=== PATIENT | female | born 1955 | race Caucasian/White ===

== ENCOUNTER → 2022-05-18 11:39 | Outpatient (BNVA) | payer MEDICARE, BC, SELFPAY | PROVIDERS: Family Provider Family Medicine; PCP Family Medicine; Visit Provider Family Medicine | DX: I10 Essential (primary) hypertension (principal); Z13.220 Encounter for screening for lipoid disorders; Z51.81 Encounter for therapeutic drug level monitoring; Z12.11 Encounter for screening for malignant neoplasm of colon | CPT/HCPCS: 80053; 80061; 85025 ==

== ENCOUNTER 2022-06-01 10:18 | Outpatient (CLI) | payer MEDICARE, BC, SELFPAY ==
--- NOTE | 2022-06-01 10:26 | MM_ITS ---
WS: [id number] BILATERAL SCREENING DIGITAL TOMOSYNTHESIS MAMMOGRAM WITH CAD HISTORY: Screening mammogram COMPARISON: 05/19/2014 and 01/31/2012 Bilateral CC and MLO views with tomosynthesis and synthetic mammography submitted. Computer aided det ection analyzed. Breast composition: There are scattered areas of fibroglandular density. No suspicious masses, microc alcifications or architectural distortion. Stable asymmetry in the anterior LEFT breast. MM/[place] [id number] IMPRESSION: BI-RADS: 2-Benign FOLLOW UP: 1 Year Follow-up
== END 2022-06-01 10:19 | disposition home or self-care (01) ==
LOC: RAD 10:18
PROVIDERS: PCP Family Medicine; Visit Provider Family Medicine
DX: Z12.31 Encounter for screening mammogram for malignant neoplasm of breast (principal)
CPT/HCPCS: 77063; 77067

== ENCOUNTER → 2022-06-02 09:54 | Outpatient (BNVA) | payer MEDICARE, BC, SELFPAY | PROVIDERS: PCP Family Medicine; Visit Provider Surgery | DX: Z12.11 Encounter for screening for malignant neoplasm of colon (principal) | CPT/HCPCS: 99024 ==

== ENCOUNTER → 2022-06-27 15:31 | Outpatient (BNVA) | payer MEDICARE, BC, SELFPAY | PROVIDERS: PCP Family Medicine; Visit Provider Clinical Nurse Specialist Adult Health | DX: Z20.822 Contact with and (suspected) exposure to COVID-19 (principal); J06.9 Acute upper respiratory infection, unspecified; J02.8 Acute pharyngitis due to other specified organisms | CPT/HCPCS: 87426; 87880 ==

== ENCOUNTER 2022-08-15 05:33 | Day surgery (SDC) | payer MEDICARE, BC, SELFPAY ==
[2022-08-11 10:00] VITALS: BMI 32.0
[2022-08-15 06:17] VITALS: BP 161/72; PULSE 62; RESP 18; TEMP 36.4; O2SAT 97
[2022-08-15] MEDS: sodium chloride 0.9% 1,000 ML 30 ML IV (06:25)
--- NOTE | 2022-08-15 06:26 | W.PM.OPSFHP ---
Same Day Surgery H&P Indication for Procedure/HPI DATE OF PROCEDURE: August 15, 2022 CHIEF COMPLAINT/INDICATIONFOR SURGICAL PROCEDURE: Screening colonoscopy PREOP DIAGNOSIS: Screening colonoscopy PLANNED PROCEDURE: Operation Date: 08/15/22 07:00 Proposed Procedures p Colonoscopy 88097,Z12.11(Not Applicable) - Ronen Myers MD This is a pleasant 67 years old female patient referred to my practice for screening colonoscopy. Patient reports her father had history of colon cancer age of 45 and she started to screening colonoscopies at age of 36, also her sister had history of colon cancer in both her dad and her sister because of that. Per patient's description. Reports her mom had history of colon polyps. Last colonoscopy was done 10 years ago and was within normal limits. ROS All systems have been reviewed negative except as for the above or per problem list. Medications/Allergies* Home Medications Medication Instructions Recorded Confirmed Type dicyclomine 10 mg capsule 10 mg PO QID PRN Spasms 05/18/22 08/11/22 History meclizine 12.5 mg tablet 12.5 mg PO BID PRN Dizziness 05/18/22 08/11/22 History atenolol 25 mg tablet 25 mg PO BEDTIME 08/11/22 08/11/22 History Allergies/Adverse Reactions Allergy/AdvReac Type Severity Reaction Status Date / Time Egpxnjy-WBS-KdI Reductase Allergy Unknown Verified 08/15/22 06:26 Inhibitor betamethasone AdvReac Mild Unknown Verified 08/15/22 06:26 [From [employer]] Current Medications: Generic Name Dose Route Start Last Admin Trade Name Freq PRN Reason Stop Dose Admin Sodium Chloride 1,000 mls @ 30 mls/hr 08/15/22 06:15 08/15/22 06:25 Sodium Chloride 0.9% IV 08/16/22 06:14 30 mls/hr .Q24H FLORES Administration Pertinent History/Comorbid Conditions* Medical History (Updated 06/27/22 @ 09:33 by Ignacio Gaona NP) Anxiety Chronic diarrhea Hypertension Surgical History (Updated 06/27/22 @ 08:32 by Ignacio Gaona NP) Hx of cervical spine surgery Hx of cholecystectomy Hx of foot surgery Hx of sinus surgery Family History (Updated 06/27/22 @ 08:34 by Ignacio Gaona NP) CAD (coronary artery disease) Hyperlipidemia Mother Cancer Father colon cancer, at 44 years old Sister colon cancer, in her 50s Hypertension Father Mother Stroke Social History Smoking and tobacco status: never smoked Alcohol intake: never Current occupational status: retired Pertinent Exam Findings alert, oriented x 3, clear to auscultation bilaterally, regular rate & rhythm and procedure specific exam findings (Abdominal exam nontender nondistended soft) Recommendations Surgery/Procedure today (Colonoscopy with possible biopsy) Other Plans: Plan of care; After thorough history and physical examination and reviewing the chart, plan to perform screening colonoscopy. I discussed with the patient in details the risks,benefits,alternatives and indications.The risk of aspiration, bleeding, soft tissue injury, perforation of the colon ,missed lesions and other potential concomitant complications were explained to the patient in details,also the potential need for Laproscoy/Laparotomy to repair any related complications including but not limited to colectomy and or Closotomy.The patient understood this well and did agree to proceed. Rationale was carefully and clearly discussed with the patient.Appropriate informed consent have been reviewed and signed All questions have been answered and all concerns have been addressed to patient's satisfaction. 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
--- NOTE | 2022-08-15 06:54 | ANES.PREANE2 ---
Pre-Anesthetic Assessment Height/Weight: Height 1.57 m Weight 79.379 kg Temp Pulse Resp BP Pulse Ox O2 Del Method 97.5 F L 62 18 161/72 97 08/15/22 06:17 08/15/22 06:17 08/15/22 06:17 08/15/22 06:17 08/15/22 06:17 08/15/22 06:17 Preop Diagnosis: Screening colonoscopy Operation Date: 08/15/22 07:00 Proposed Procedures p Colonoscopy 14467,Z12.11(Not Applicable) - Ronen Myers MD Was Beta Sancho taken within 24 hours: Yes Was Clonidine taken within 24 hours: N/A Last intake: Intake Last Liquid Date 08/14/22 Last Liquid Time 21:00 Last Solid Date 08/13/22 Last Solid Time 17:00 Social Tobacco quit 15 years ago Exam alert, oriented x 3, clear to auscultation bilaterally and regular rate & rhythm Airway Submandibular: within normal limits Cervical ROM: Other (limited flexion and extension and left lateral rotation) Mallampati: Class III History/ROS No significant history except as noted Pulmonary covid in june, no current symptoms, not hospitalized CV/HEM mitral valve prolapse minor None reported Hepatic None reported GI Gastroesophageal Reflux Disease Metabolic None reported Musc/skel None reported Neuropsych Anxiety Anesthetic Plan ASA status: 2 Anesthesia: Anesthesia Evaluation and MAC Risk of > 500 ml blood loss (7ml/kg in children): Yes, adequate IV access and fluids planned Medications/Allergies Home Medications Medication Instructions Recorded Confirmed Last Taken Type dicyclomine 10 mg capsule 10 mg PO QID PRN Spasms 05/18/22 08/11/22 08/08/22 History lorazepam 1 mg tablet 1 mg PO DAILY PRN anxiety #90 tabs 05/18/22 08/11/22 08/13/22 Rx meclizine 12.5 mg tablet 12.5 mg PO BID PRN Dizziness 05/18/22 08/11/22 Unknown History atenolol 25 mg tablet 25 mg PO BEDTIME 08/11/22 08/11/22 08/14/22 20:00 History Allergies Allergy/AdvReac Type Severity Reaction Status Date / Time Bnodoxu-ARY-LzO Reductase Allergy Unknown Verified 08/15/22 06:26 Inhibitor betamethasone AdvReac Mild Unknown Verified 08/15/22 06:26 [From [facility]] Current Medications Generic Name Dose Route Start Last Admin Trade Name Jovanniq PRN Reason Stop Dose Admin Sodium Chloride 1,000 mls @ 30 mls/hr 08/15/22 06:15 08/15/22 06:25 Sodium Chloride 0.9% IV 08/16/22 06:14 30 mls/hr .Q24H FLORES Administration PFSH Anesthesia Medical History (Updated 06/27/22 @ 09:33 by Ignacio Gaona NP) Anxiety Chronic diarrhea Hypertension Surgical History (Updated 06/27/22 @ 08:32 by Ignacio Gaona NP) Hx of cervical spine surgery Hx of cholecystectomy Hx of foot surgery Hx of sinus surgery Family History (Updated 06/27/22 @ 08:34 by Ignacio Gaona NP) Father Cancer colon cancer, at 44 years old Hypertension Sister Cancer colon cancer, in her 50s Mother Hypertension Hyperlipidemia Other CAD (coronary artery disease) Stroke Social History (Updated 06/27/22 @ 08:35 by Ignacio Gaona NP) Smoking and tobacco status: never smoked Alcohol intake: never Current occupational status: retired Data Anesthesia Cardiac Studies: No Data to Display
[2022-08-15 07:54] VITALS: BP 125/70; PULSE 74; RESP 16; TEMP 36.1; O2SAT 100
[2022-08-15 08:11] VITALS: BP 114/71; PULSE 65; RESP 18; O2SAT 100
--- NOTE | 2022-08-15 15:42 | ANE.PACU2 ---
Inpatient post-anesthesia follow up: Airway intact: Yes Vital signs: Temperature 97.0 F Pulse Rate 65 Respiratory Rate 18 Blood Pressure 114/71 Pulse Oximetry 100 Oxygen Delivery Me thod Room Air Oxygen Flow Rate Fraction of Inspir ed Oxygen Hydration adequate: Yes Nausea and vomiting: No Pain level: 2 Mental status: Baseline
== END 2022-08-15 08:25 | disposition home or self-care (01) ==
PROVIDERS: PCP Family Medicine; Visit Provider Surgery
PROC: 0DJD8ZZ Inspection of Lower Intestinal Tract, Via Natural or Artificial Opening Endoscopic (ICD-10-PCS; CPT 45378; principal; 2022-08-15 07:00)
DX: Z12.11 Encounter for screening for malignant neoplasm of colon (principal); D12.3 Benign neoplasm of transverse colon; D12.8 Benign neoplasm of rectum; F41.9 Anxiety disorder, unspecified; I10 Essential (primary) hypertension; K21.9 Gastro-esophageal reflux disease without esophagitis; Z86.16 Personal history of COVID-19
CPT/HCPCS: 45385; 88305; J2704; J3490; J7030

== ENCOUNTER → 2022-08-23 08:16 | Outpatient (BNVA) | payer MEDICARE, BC, SELFPAY | PROVIDERS: PCP Family Medicine; Visit Provider Surgery | DX: Z09 Encounter for follow-up examination after completed treatment for conditions other than malignant neoplasm (principal); K63.5 Polyp of colon | CPT/HCPCS: 99212 ==

== ENCOUNTER → 2023-05-25 11:13 | Outpatient (BNVA) | payer MEDICARE, BC, SELFPAY | PROVIDERS: PCP Family Medicine; Visit Provider Family Medicine | DX: Z51.81 Encounter for therapeutic drug level monitoring (principal); R10.13 Epigastric pain; I10 Essential (primary) hypertension; E03.9 Hypothyroidism, unspecified; Z13.220 Encounter for screening for lipoid disorders; J32.9 Chronic sinusitis, unspecified; R42 Dizziness and giddiness; F41.9 Anxiety disorder, unspecified | CPT/HCPCS: 80053; 80061; 83690; 84443; 85025; 86141 ==

== ENCOUNTER 2023-11-07 16:09 | Emergency (ER) | payer MEDICARE, BC, SELFPAY ==
[2023-11-07 16:10] VITALS: BP 182/76; PULSE 92; RESP 16; TEMP 36.4; O2SAT 99
--- NOTE | 2023-11-07 16:23 | CTR_ITS ---
PROCEDURE INFORMATION: Exam: CT Cervical Spine Without Contrast Exam date and time: 11/07/2023 4:48 PM Age: 68 years old Clinical indication: Injury or trauma; Fall; Other: Hit back of head; Prior surgery; Surgery date: 6+ months; Surgery type: Fusion TECHNIQUE: Imaging protocol: Computed tomography of the cervical spine without contrast. Radiation optimization: All CT scans at this facility use at least one of these dose optimization techniques: automated exposure control; mA and/or kV adjustment per patient size (includes targeted exams where dose is matched to clinical indication); or iterative reconstruction. COMPARISON: CT head wo con* [id number] 11/07/2023 4:48 PM RADIATION DOSE METRICS: Total DLP (mGy-cm): 459.9 FINDINGS: Bones/joints: C4 through 6 ACDF. No evidence of acute fracture or subluxation of the cervical spine. The craniocervical junction including the atlantoaxial and atlantooccipital articulations are intact. C2-C3: Uncovertebral hypertrophy and facet arthrosis results in mild left-sided foraminal stenosis. No central stenosis. C3-C4: Uncovertebral hypertrophy and right-sided facet arthrosis results in moderate-severe right-sided foraminal stenosis. No central stenosis. C4-C5: Fusion level. No central or foraminal stenosis. C5-C6: Fusion level. Uncovertebral hypertrophy results in mild-moderate right-sided and mild left-sided foraminal stenosis. No central stenosis. C6-C7: Mild uncovertebral hypertrophy without central or foraminal stenosis. C7-T1: No central or foraminal stenosis. Lungs: The visualized lung apices are clear. Soft tissues: No gross soft tissue abnormality. No significant prevertebral edema. No evidence of fluid collection or hematoma. CT/CT cervical spin wo con* [id number] IMPRESSION: 1. No evidence of fracture or subluxation of the cervical spine.
--- NOTE | 2023-11-07 16:23 | CTR_ITS ---
PROCEDURE INFORMATION: Exam: CT Head Without Contrast Exam date and time: 11/07/2023 4:48 PM Age: 68 years old Clinical indication: Injury or trauma; Fall; Other: Hit back of head, swelling TECHNIQUE: Imaging protocol: Computed tomography of the head without contrast. Radiation optimization: All CT scans at this facility use at least one of these dose optimization techniques: automated exposure control; mA and/or kV adjustment per patient size (includes targeted exams where dose is matched to clinical indication); or iterative reconstruction. COMPARISON: CT cervical spin wo con* [id number] 11/07/2023 4:48 PM RADIATION DOSE METRICS: Total DLP (mGy-cm): 997.4 FINDINGS: Brain: No evidence of intra-axial or extra-axial hemorrhage. No mass effect or midline shift. Martinez-white differentiation is maintained. Basilar cisterns are patent. Cerebral ventricles: No hydrocephalus. Paranasal sinuses: The visualized paranasal sinuses are well aerated. Mastoid air cells: The visualized mastoids and middle ears are clear. Bones/joints: The visualized calvarium and bony orbits are intact. Soft tissues: Posterior parietal scalp contusion. CT/CT head wo con* [id number] IMPRESSION: 1. No acute intracranial abnormality.
--- NOTE | 2023-11-07 16:29 | ED_ITS ---
Documented by User: Paul Freeman DO 11/08/23 06:56 HPI - Fall 2 General: Chief Complaint: Head Injury Stated Complaint: fall, hit head Time Seen by Provider: 11/07/23 16:23 History of Present Illness: Associated symptoms-after fall: Denies abdominal pain, chest pain or neck pain Review of Systems 2 Const: Denies: fever(s) or chills Card: Denies: chest pain Resp: Denies: dyspnea GI: Denies: abdominal pain : Denies: dysuria, urinary frequency or urinary urgency Musc: Denies: neck pain or back pain Skin/Breast: Denies: rash PFSH ED 2 PFSH: Medical History Family history of colon cancer in father Anxiety Hypertension Chronic diarrhea Surgical History Hx of foot surgery Hx of cervical spine surgery Hx of sinus surgery Hx of cholecystectomy Family History Father Cancer colon cancer, at 44 years old Hypertension Sister Cancer colon cancer, in her 50s Mother Hypertension Hyperlipidemia Other CAD (coronary artery disease) Stroke Social History Smoking and tobacco/nicotine status: never used tobacco/nicotine Alcohol intake: never Current occupational status: retired Physical Exam 2 Const: COMMON NORMALS: no acute distress GENERAL APPEARANCE: cooperative and comfortable ORIENTATION/CONSCIOUSNESS: Yes awake, Yes oriented to person, Yes oriented to place and Yes oriented to time HENMT: COMMON NORMALS: normocephalic, atraumatic and hearing grossly normal bilaterally HEAD & SCALP: normocephalic and atraumatic Resp: COMMON NORMALS: normal respiratory effort, No retractions, No use of accessory muscles and clear to auscultation bilaterally AUSCULTATION: clear to auscultation bilaterally Cardio: COMMON NORMALS: regular rate, regular rhythm and No murmurs present (Cardio) RATE: regular rate RHYTHM: regular rhythm GI: COMMON NORMALS: Soft to palpation and No hepatosplenomegaly present A USCULTATION: Yes normoactive bowel sounds PALPATION: Yes Soft to palpation, No Tenderness to palpation present (GI), No Guarding due to palpation present (GI) and Yes No hepatosplenomegaly present Extremity: COMMON NORMALS: normal to inspection, capillary refill normal, no clubbing, cyanosis or edema, no calf tenderness and no pedal edema Neuro: SENSORIUM/ORIENTATION: Yes oriented to person, Yes oriented to place and Yes oriented to time Skin: COMMON NORMALS: no rashes or lesions noted GENERAL SKIN EXAM: no rashes or lesions noted Course 2 Vital Signs: Vital signs: Vital Signs Temperature 97.5 F L 11/07/23 18:30 Pulse Rate 76 11/07/23 18:30 Respiratory Rate 16 11/07/23 18:30 Blood Pressure 137/85 11/07/23 18:30 Pulse Oximetry 96 11/07/23 18:30 Oxygen Delivery Me thod Room Air 11/07/23 17:07 MDM - Fall Medical Decision Making Care signed out to Dr. Argueta at change of shift. See final notes for diagnosis and disposition. Person patient was handed over to me by Dr. Quezada at approximately 1700 hrs. Lab work was reviewed as well as head CT and cervical spine CT all of which was essentially negative. Patient was discharged home. Lab Data 11/07/23 17:05 11/07/23 17:05 Radiology Impressions Cervical Spine CT 11/07/23 16:23 IMPRESSION: 1. No evidence of fracture or subluxation of the cervical spine. Head CT 11/07/23 16:23 IMPRESSION: 1. No acute intracranial abnormality. Laboratory Results WBC 12.46 10^3/uL (3.29-11.43) H 11/07/23 17:05 RBC 4.85 10^6/uL (3.85-5.65) 11/07/23 17:05 Hgb 12.80 g/dL (11.27-16.99) 11/07/23 17:05 Hct 40.1 % (36-47) 11/07/23 17:05 MCV 82.7 fl (85-98) L 11/07/23 17:05 MCH 26.4 pg (27-33) L 11/07/23 17:05 MCHC 31.9 g/dL (30-55) 11/07/23 17:05 RDW 13.5 % (12.1-15.1) 11/07/23 17:05 Plt Count 231 10^3/cmm (157-399) 11/07/23 17:05 MPV 9.2 fL (7.4-10.4) 11/07/23 17:05 Neut % (Auto) 73.7 % 11/07/23 17:05 Lymph % (Auto) 17.7 % 11/07/23 17:05 Rutherford % (Auto) 6.7 % 11/07/23 17:05 Eos % (Auto) 0.6 % 11/07/23 17:05 Baso % (Auto) 0.4 % 11/07/23 17:05 Neut # (Auto) 9.20 10^3/uL (1.8-7.7) H 11/07/23 17:05 Lymph # (Auto) 2.2 10^3/uL (0.8-4.8) 11/07/23 17:05 [place]utherford # (Auto) 0.8 10^3/uL (0.2-0.9) 11/07/23 17:05 Eos # (Auto) 0.1 10^3/uL (0.0-0.8) 11/07/23 17:05 Baso # (Auto) 0.1 10^3/uL (0.0-0.1) 11/07/23 17:05 Nucleated RBC % (auto) 0 % 11/07/23 17:05 Nucleated RBCs # 0.0 /100WBC 11/07/23 17:05 Sodium 141 mmol/L (136-145) 11/07/23 17:05 Potassium 3.5 mmol/L (3.5-5.1) 11/07/23 17:05 Chloride 103 mmol/L (98-107) 11/07/23 17:05 Carbon Dioxide 26 mmol/L (22-29) 11/07/23 17:05 Anion Gap 15.5 (5-19) 11/07/23 17:05 BUN 15 mg/dL (8-23) 11/07/23 17:05 Creatinine 0.7 mg/dL (0.5-0.9) 11/07/23 17:05 GFR Calculation 83.5 mL/min (90-130) L 11/07/23 17:05 Glucose 89 mg/dL (65-115) 11/07/23 17:05 Calculated Osmolality 292 mOsm/kg (285-295) 11/07/23 17:05 Calcium 9.2 mg/dL (8.5-10.5) 11/07/23 17:05 Total Bilirubin 0.4 mg/dL (0.15-1.2) 11/07/23 17:05 AST 19 U/L (0-32) 11/07/23 17:05 ALT 18 U/L (0-33) 11/07/23 17:05 Alkaline Phosphatase 79 U/L (35-105) 11/07/23 17:05 Total Protein 6.7 g/dL (6.6-8.7) 11/07/23 17:05 Albumin 4.4 g/dL (3.5-5.2) 11/07/23 17:05 Globulin 2.3 g/dL (1.3-4.6) 11/07/23 17:05 Discharge Plan Discharge Patient Disposition: Home Clinical Impression: Fall Qualifiers: Encounter type: initial encounter Qualified Code(s): W19.XXXA - Unspecified fall, initial encounter Contusion of head Qualifiers: Encounter type: initial encounter Contusion of head detail: scalp Qualified Code(s): S00.03XA - Contusion of scalp, initial encounter Condition: Stable Prescriptions: New hydrocodone-acetaminophen 5-325 mg tablet 1 tab PO Q6H PRN (Reason: pain) Qty: 14 0RF No Action dicyclomine 10 mg capsule 10 mg PO QID PRN (Reason: Spasms) amoxicillin-pot clavulanate 875-125 mg tablet 1 tab PO BID Qty: 20 0RF omeprazole 40 mg capsule,delayed release(DR/EC) 40 mg PO DAILY Qty: 90 3RF meclizine 12.5 mg tablet 12.5 mg PO BID PRN (Reason: Dizziness) Qty: 60 3RF atenolol 25 mg tablet 12.5 mg PO BEDTIME Qty: 45 3RF lorazepam 1 mg tablet 1 mg PO DAILY PRN (Reason: anxiety) Qty: 90 1RF Discharge Orders: Discharge ED (Routine); Ordered 11/07/23 Ordered By: Ta Argueta Referrals: Johnathon Hernandez MD [Primary Care Provider] - 1 week Patient Instructions: Scalp Contusion in Adults (ED), Opioid Safety, Pain Management Activity Restrictions/Additional Instructions: Please take all your medicine as directed. Please follow-up if not approximation of the next 7 days for further evaluation and treatment as needed. If your pain becomes unbearable please feel free to return to the ER. 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 Patient states she was washing her car and when the ladder broke she fell backwards. Patient states she almost lost consciousness but was able to fight it off. Patient has a big hematoma to her posterior scalp and is also complaining of neck pain. Patient states the pain level was a 9. Patient is alert and oriented x 4 with no neurologic deficits at this time. PFSH ED 2 PFSH: Medical History Family history of colon cancer in father Anxiety Hypertension Chronic diarrhea Surgical History Hx of foot surgery Hx of cervical spine surgery Hx of sinus surgery Hx of cholecystectomy Family History Father Cancer colon cancer, at 44 years old Hypertension Sister Cancer colon cancer, in her 50s Mother Hypertension Hyperlipidemia Other CAD (coronary artery disease) Stroke Social History Smoking and tobacco/nicotine status: never used tobacco/nicotine Alcohol intake: never Current occupational status: retired Course 2 Vital Signs: Vital signs: Vital Signs Temperature 97.5 F L 11/07/23 18:30 Pulse Rate 76 11/07/23 18:30 Respiratory Rate 16 11/07/23 18:30 Blood Pressure 137/85 11/07/23 18:30 Pulse Oximetry 96 11/07/23 18:30 Oxygen Delivery Nv thod Room Air 11/07/23 17:07 MDM - Fall Medical Decision Making Person patient was handed over to me by Dr. Quezada at approximately 1700 hrs. Lab work was reviewed as well as head CT and cervical spine CT all of which was essentially negative. Patient was discharged home. Lab Data 11/07/23 17:05 11/07/23 17:05 Radiology Impressions Cervical Spine CT 11/07/23 16:23 IMPRESSION: 1. No evidence of fracture or subluxation of the cervical spine. Head CT 11/07/23 16:23 IMPRESSION: 1. No acute intracranial abnormality. Laboratory Results WBC 12.46 10^3/uL (3.29-11.43) H 11/07/23 17:05 RBC 4.85 10^6/uL (3.85-5.65) 11/07/23 17:05 Hgb 12.80 g/dL (11.27-16.99) 11/07/23 17:05 Hct 40.1 % (36-47) 11/07/23 17:05 MCV 82.7 fl (85-98) L 11/07/23 17:05 MCH 26.4 pg (27-33) L 11/07/23 17:05 MCHC 31.9 g/dL (30-55) 11/07/23 17:05 RDW 13.5 % (12.1-15.1) 11/07/23 17:05 Plt Count 231 10^3/cmm (157-399) 11/07/23 17:05 MPV 9.2 fL (7.4-10.4) 11/07/23 17:05 Neut % (Auto) 73.7 % 11/07/23 17:05 Lymph % (Auto) 17.7 % 11/07/23 17:05 Rutherford % (Auto) 6.7 % 11/07/23 17:05 Eos % (Auto) 0.6 % 11/07/23 17:05 Baso % (Auto) 0.4 % 11/07/23 17:05 Neut # (Auto) 9.20 10^3/uL (1.8-7.7) H 11/07/23 17:05 Lymph # (Auto) 2.2 10^3/uL (0.8-4.8) 11/07/23 17:05 Rutherford # (Auto) 0.8 10^3/uL (0.2-0.9) 11/07/23 17:05 Eos # (Auto) 0.1 10^3/uL (0.0-0.8) 11/07/23 17:05 Baso # (Auto) 0.1 10^3/uL (0.0-0.1) 11/07/23 17:05 Nucleated RBC % (auto) 0 % 11/07/23 17:05 Nucleated RBCs # 0.0 /100WBC 11/07/23 17:05 Sodium 141 mmol/L (136-145) 11/07/23 17:05 Potassium 3.5 mmol/L (3.5-5.1) 11/07/23 17:05 Chloride 103 mmol/L (98-107) 11/07/23 17:05 Carbon Dioxide 26 mmol/L (22-29) 11/07/23 17:05 Anion Gap 15.5 (5-19) 11/07/23 17:05 BUN 15 mg/dL (8-23) 11/07/23 17:05 Creatinine 0.7 mg/dL (0.5-0.9) 11/07/23 17:05 GFR Calculation 83.5 mL/min (90-130) L 11/07/23 17:05 Glucose 89 mg/dL (65-115) 11/07/23 17:05 Calculated Osmolality 292 mOsm/kg (285-295) 11/07/23 17:05 Calcium 9.2 mg/dL (8.5-10.5) 11/07/23 17:05 Total Bilirubin 0.4 mg/dL (0.15-1.2) 11/07/23 17:05 AST 19 U/L (0-32) 11/07/23 17:05 ALT 18 U/L (0-33) 11/07/23 17:05 Alkaline Phosphatase 79 U/L (35-105) 11/07/23 17:05 Total Protein 6.7 g/dL (6.6-8.7) 11/07/23 17:05 Albumin 4.4 g/dL (3.5-5.2) 11/07/23 17:05 Globulin 2.3 g/dL (1.3-4.6) 11/07/23 17:05 All radiology interpretation(s) finalized by discharge Discharge Plan Discharge Patient Disposition: Home Clinical Impression: Fall Qualifiers: Encounter type: initial encounter Qualified Code(s): W19.XXXA - Unspecified fall, initial encounter Contusion of head Qualifiers: Encounter type: initial encounter Contusion of head detail: scalp Qualified Code(s): S00.03XA - Contusion of scalp, initial encounter Condition: Stable Prescriptions: New hydrocodone-acetaminophen 5-325 mg tablet 1 tab PO Q6H PRN (Reason: pain) Qty: 14 0RF No Action dicyclomine 10 mg capsule 10 mg PO QID PRN (Reason: Spasms) amoxicillin-pot clavulanate 875-125 mg tablet 1 tab PO BID Qty: 20 0RF omeprazole 40 mg capsule,delayed release(DR/EC) 40 mg PO DAILY Qty: 90 3RF meclizine 12.5 mg tablet 12.5 mg PO BID PRN (Reason: Dizziness) Qty: 60 3RF atenolol 25 mg tablet 12.5 mg PO BEDTIME Qty: 45 3RF lorazepam 1 mg tablet 1 mg PO DAILY PRN (Reason: anxiety) Qty: 90 1RF Discharge Orders: Discharge ED (Routine); Ordered 11/07/23 Ordered By: Ta Argueta Referrals: Johnathon Hernandez MD [Primary Care Provider] - 1 week Patient Instructions: Scalp Contusion in Adults (ED), Opioid Safety, Pain Management Activity Restrictions/Additional Instructions: Please take all your medicine as directed. Please follow-up if not approximation of the next 7 days for further evaluation and treatment as needed. If your pain becomes unbearable please feel free to return to the ER. 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
[2023-11-07 17:07] VITALS: BP 137/85; PULSE 76; O2SAT 99
[2023-11-07 17:15] LABS: Basophils # 0.1 10^3/uL (0.0-0.1); Basophils % 0.4 %; Eosinophils # 0.1 10^3/uL (0.0-0.8); Eosinophils % 0.6 %; Hematocrit 40.1 % (36-47); Lymphocytes # 2.2 10^3/uL (0.8-4.8); Lymphocytes % 17.7 %; Mean Corpuscular HGB Conc 31.9 g/dL (30-55); Mean Corpuscular Hemoglobin 26.4 pg (27-33); Mean Corpuscular Volume 82.7 fl (85-98); Mean Platelet Volume 9.2 fL (7.4-10.4); Monocytes # 0.8 10^3/uL (0.2-0.9); Monocytes % 6.7 %; Neutrophils % 73.7 %; Nucleated Red Blood Cells % 0 %; Platelet Count 231 10^3/cmm (157-399); Red Blood Count 4.85 10^6/uL (3.85-5.65); Red Cell Distribution Width 13.5 % (12.1-15.1); White Blood Count 12.46 10^3/uL (3.29-11.43)
[2023-11-07] MEDS: ketorolac 60 mg/2 mL INJ IM (17:24)
[2023-11-07 17:33] LABS: Alanine Aminotransferase 18 U/L (0-33); Albumin Level 4.4 g/dL (3.5-5.2); Alkaline Phosphatase 79 U/L (35-105); Anion Gap 15.5 (5-19); Aspartate Amino Transferase 19 U/L (0-32); Blood Urea Nitrogen 15 mg/dL (8-23); Calcium 9.2 mg/dL (8.5-10.5); Carbon Dioxide 26 mmol/L (22-29); Chloride 103 mmol/L (98-107); Globulin 2.3 g/dL (1.3-4.6); Glomerular Filtration Rate 83.5 mL/min (90-130); Glucose 89 mg/dL (65-115); Osmolality Calculated 292 mOsm/kg (285-295); Potassium 3.5 mmol/L (3.5-5.1); Sodium 141 mmol/L (136-145); Total Bilirubin 0.4 mg/dL (0.15-1.2); Total Protein 6.7 g/dL (6.6-8.7)
[2023-11-07 18:22] VITALS: RESP 16; O2SAT 96
[2023-11-07] MEDS: oxyCODONE-APAP 5-325 mg Tablet 1 TAB PO (18:22)
[2023-11-07 18:30] VITALS: BP 137/85; PULSE 76; RESP 16; TEMP 36.4; O2SAT 96
== END 2023-11-07 18:35 | disposition home or self-care (01) ==
PROVIDERS: Family Medicine; Emergency Provider Emergency Medicine; PCP Family Medicine
DX: S00.03XA Contusion of scalp, initial encounter (principal); I10 Essential (primary) hypertension; W11.XXXA Fall on and from ladder, initial encounter
CPT/HCPCS: 36415; 70450; 72125; 80053; 85025; 96372; 99284; J1885